=== PATIENT | female | born 1970 | race Caucasian/White ===

== ENCOUNTER → 2020-01-12 10:18 | Outpatient (BNVA) | payer OTHER, SELFPAY | PROVIDERS: PCP Internal Medicine; Referring Provider Internal Medicine; Visit Provider Advanced Practice Midwife | DX: N89.8 Other specified noninflammatory disorders of vagina (principal); N94.10 Unspecified dyspareunia; R23.2 Flushing | CPT/HCPCS: 99213 ==

== ENCOUNTER → 2020-04-21 11:35 | Outpatient (BNVA) | payer OTHER, SELFPAY | PROVIDERS: PCP Internal Medicine; Visit Provider Advanced Practice Midwife ==

== ENCOUNTER 2020-04-22 14:48 | Outpatient (REF) | payer OTHER, SELFPAY ==
--- NOTE | 2020-04-22 | MM_ITS ---
EXAMINATION: MM SCREENING DIGITAL BREAST TOMOSYNTHESIS, BILATERAL CLINICAL INFORMATION: Screening. Asymptomatic. The lifetime risk of breast cancer based on the Tyrer-Cuzick Model is 7%. COMPARISON: Outside mammography: 07/21/2015, 07/09/2011 ([place]) TECHNIQUE: Digital breast tomosynthesis is performed in both the craniocaudal and mediolateral oblique views along with computer-aided detection (CAD). Synthesized 2D images are generated from the tomosynthesis. FINDINGS: There are scattered areas of fibroglandular density (ACR BI-RADS breast composition Category b). There are no significant masses, abnormal calcifications, or other abnormalities. Parenchymal pattern is similar to prior outside development no significant changes. MM/MM tomosynthesis screening BI IMPRESSION: No mammographic evidence of malignancy. ASSESSMENT: BI-RADS 1: Negative RECOMMENDATION: Routine annual mammography screening. This patient's information was entered into a reminder system with a target due date for their next mammogram.
== END 2020-04-22 14:49 | disposition home or self-care (01) ==
LOC: HO.MAMMO 14:48
PROVIDERS: Visit Provider Advanced Practice Midwife
DX: Z12.31 Encounter for screening mammogram for malignant neoplasm of breast (principal)
CPT/HCPCS: 77063; 77067

== ENCOUNTER → 2020-06-14 12:24 | Outpatient (BNVA) | payer OTHER, SELFPAY | PROVIDERS: Visit Provider Advanced Practice Midwife ==

== ENCOUNTER 2020-10-12 08:14 | Outpatient (REF) | payer OTHER, SELFPAY ==
--- NOTE | ~2020-10-12 | US_ITS ---
EXAMINATION: US ABDOMEN COMPLETE CLINICAL INFORMATION: Right upper quadrant pain. COMPARISON: None TECHNIQUE: Real-time imaging of the abdominal viscera. FINDINGS: PANCREAS: Normal. ABDOMINAL AORTA: The proximal, mid, and distal segments are normal in caliber. INFERIOR VENA CAVA: Visualized portions are normal. LIVER: Normal. The liver is normal in size. The liver contour is normal. Parenchymal echogenicity is normal. No focal hepatic lesion. There is no intrahepatic biliary duct dilatation seen. GALLBLADDER: The gallbladder wall is slightly irregular and mildly thickened with echogenic non shadowing areas along the inner gallbladder wall likely adenomyomatosis or cholesterolosis. The gallbladder is physiologically distended without evidence of stones, sludge, polyps, wall thickening or pericholecystic fluid. COMMON BILE DUCT: Normal in caliber measuring 0.4 cm in diameter. RIGHT KIDNEY: Normal. No hydronephrosis. No renal calculi or focal parenchymal lesions. The kidney measures 11.6 cm in maximum dimension. LEFT KIDNEY: Normal. No hydronephrosis. No renal calculi or focal parenchymal lesions. The kidney measures 10.3 cm in maximum dimension. SPLEEN: Normal. The spleen measures 10.4 cm in maximum dimension. FREE FLUID: None. US/US abdomen complete IMPRESSION: Suspect gallbladder adenomyomatosis or cholesterolosis. No echogenic gallstones seen. Rest of the abdominal ultrasound is unremarkable.
== END 2020-10-12 08:15 | disposition home or self-care (01) ==
LOC: HO.US 08:14
PROVIDERS: Visit Provider Internal Medicine
DX: R10.11 Right upper quadrant pain (principal)
CPT/HCPCS: 76700

== ENCOUNTER 2021-05-27 07:43 | Outpatient (REF) | payer OTHER, SELFPAY ==
--- NOTE | ~2021-05-27 | MM_ITS ---
EXAMINATION: MM SCREENING DIGITAL BREAST TOMOSYNTHESIS, BILATERAL CLINICAL INFORMATION: Screening. Asymptomatic. The lifetime risk of breast cancer based on the Tyrer-Cuzick Model is 10%. COMPARISON: Mammography: 04/22/2020, outside exam 07/21/2015 ([place]). TECHNIQUE: Digital breast tomosynthesis is performed in both the craniocaudal and mediolateral oblique views along with computer-aided detection (CAD). Synthesized 2D images are generated from the tomosynthesis. FINDINGS: There are scattered areas of fibroglandular density (ACR BI-RADS breast composition Category b). There are no significant masses, abnormal calcifications, or other abnormalities. Parenchymal pattern is similar to prior studies. There is no developing density or architectural abnormality. The axilla and skin contours are unremarkable. No significant changes. MM/MM tomosynthesis screening BI IMPRESSION: No mammographic evidence of malignancy. ASSESSMENT: BI-RADS 1: Negative RECOMMENDATION: Routine annual mammography screening. This patient's information was entered into a reminder system with a target due date for their next mammogram.
== END 2021-05-27 07:44 | disposition home or self-care (01) ==
LOC: HO.MAMMO 07:43
PROVIDERS: PCP Internal Medicine; Visit Provider Internal Medicine
DX: Z12.31 Encounter for screening mammogram for malignant neoplasm of breast (principal)
CPT/HCPCS: 77063; 77067

== ENCOUNTER → 2021-07-18 08:45 | Outpatient (BNVA) | payer OTHER, SELFPAY | PROVIDERS: PCP Internal Medicine; Visit Provider Advanced Practice Midwife | DX: Z13.89 Encounter for screening for other disorder (principal) ==

== ENCOUNTER 2022-07-21 08:00 | Outpatient (REF) | payer OTHER, SELFPAY ==
--- NOTE | ~2022-07-21 | MM_ITS ---
EXAMINATION: MM SCREENING DIGITAL BREAST TOMOSYNTHESIS, BILATERAL CLINICAL INFORMATION: Screening. Asymptomatic. The lifetime risk of breast cancer based on the Tyrer-Cuzick Model is 8%. COMPARISON: Mammography: 05/27/2021, 04/22/2020; outside mammography 07/21/2015 ([place]). TECHNIQUE: Digital breast tomosynthesis is performed in both the craniocaudal and mediolateral oblique views along with computer-aided detection (CAD). Synthesized 2D images are generated from the tomosynthesis. FINDINGS: There are scattered areas of fibroglandular density (ACR BI-RADS breast composition Category b). There are no significant masses, abnormal calcifications, or other abnormalities. No architectural abnormality or developing density or significant change from prior studies. The axilla are unremarkable. The skin contours are smooth. MM/MM tomosynthesis screening BI IMPRESSION: No mammographic evidence of malignancy. ASSESSMENT: BI-RADS 1: Negative RECOMMENDATION: Routine annual mammography screening. This patient's information was entered into a reminder system with a target due date for their next mammogram.
== END 2022-07-21 08:01 | disposition home or self-care (01) ==
LOC: HO.MAMMO 08:00
PROVIDERS: PCP Internal Medicine; Visit Provider Internal Medicine
DX: Z12.31 Encounter for screening mammogram for malignant neoplasm of breast (principal)
CPT/HCPCS: 77063; 77067

== ENCOUNTER 2022-10-26 14:10 | Outpatient (AMB) | payer OTHER, SELFPAY ==
--- NOTE | 2022-10-26 14:16 | MHC.OFFVIS ---
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 Scribed for CHRIS Waller by Areli Angela medical record administrator, on 10/26/2022 at 2:45 pm EST Cashier Clerk Required: No Information Interpreted: non-clinical & clinical Petrography Teacher: Petrography Teacher Present (Claire Shaw ARTHUR) Accompanied by: Self / Same As Patient Allergies No Known Allergies Allergy (Verified 10/26/22 14:21) Is last menstrual period known: No HPI HPI Comments History of Present Illness Details She is a postmenopausal woman presenting for annual exam. Hx of hysterectomy due to cervical cancer. 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 She attempts to eat a healthy diet including Calcium and Vitamin D. She stays active with exercise. Currently sexually active. Uses Estradiol 2x per week for vaginal dryness. Denies vaginal itching and irritation. STD screening offered; she accepts. Last pap smear 2019. Last mammogram 07/21/22. UTD on colonoscopy. 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 Sexual orientation: Straight/Heterosexual Gender identity: Female Female Reproductive History Menstrual Menopause type: surgical Total pregnancies: 2 Full term: 2 Number of Living Children: 2 Date of last pap smear: 12/30/19 Date of Mammogram: 07/21/22 Physical Exam Vital Signs: Last Vital Signs BP 122/76 10/26/22 14:19 BMI result Body Mass Index 25.6 Const General: cooperative, healthy appearing, no acute distress, well developed and alert Orientation/consciousness: patient oriented x3 HEENT Head: Yes normal to inspection Eyes General: appearance normal, both eyes and all related structures Neck Neck: Yes normal visual inspection Thyroid: Thyroid normal Chest Chest palpation & inspection: normal inspection of the chest Breast/axilla inspection: normal inspection of the breasts (symmetrical) and Other (no: puckering, dimpling, peau de orange, retraction, discharge or lesions) Resp Effort & Inspection: normal respiratory effort GI Inspection: Yes normal to inspection Palpation (GI): Soft to palpation Rectal Exam - Female: deferred General: Yes bladder normal to palpation External Female Exam: normal external appearance and normal appearance of the urethra Speculum Exam - Vagina: normal appearance of the vagina, normal palpation, normal vaginal discharge and vagina atrophic Speculum Exam - Cervix: Cervix absent (vag cuff noted, no lesions or nodules ) Bimanual exam- vagina & uterus: normal bimanual exam, normal palpation, bladder normal to palpation and uterus absent Bimanual Exam- Adnexa, other: normal adnexae and no masses Skin General skin exam: no rashes or lesions noted Neuro General: patient oriented x3 Cognition (Neuro): normal cognition Extrem General: Yes normal to inspection Psych Attitude: cooperative Thought process: Normal thought process present Assessment & Plan Assessment & Plan (1) Encounter for annual routine gynecological examination: Code(s): Z01.419 - Encounter for gynecological examination (general) (routine) without abnormal findings Plan: Discussed: Current recommendations for pap smears per ASCCP guidelines. Breast awareness and periodic self breast exams. Encouraged yearly mammograms. Maintaining a healthy lifestyle including a well balanced diet including Calcium and Vitamin D and routine exercise. All of her questions and concerns were addressed to the best of my ability. RTO in one year for AG. (2) Vaginal dryness, menopausal: Code(s): N95.1 - Menopausal and female climacteric states Plan: Continue Estradiol. Orders: Orders Pap Smear Today Z01.419 - Encounter for gynecological examination (general) (routine) without abnormal findings Medications: Refilled estradiol 0.01%(0.1mg/gram) (Estrace) use nightly for two weeks, then twice a week 1 g vaginal 2XW 42.5 grams 4RF Coding Level of Care Code Est Pt Prev Care 40-64y(48989) Diagnoses Encounter for annual routine gynecological examination Z01.419 Vaginal dryness, menopausal N95.1
[2022-10-26 14:19] VITALS: BP 122/76; BMI 25.6
== END 2022-10-26 15:00 | disposition home or self-care (01) ==
LOC: HO.HWS 14:10
PROVIDERS: PCP Internal Medicine; Visit Provider Advanced Practice Midwife
DX: Z01.419 Encounter for gynecological examination (general) (routine) without abnormal findings (principal); N95.1 Menopausal and female climacteric states
CPT/HCPCS: 99396

== ENCOUNTER 2022-10-26 14:10 | Outpatient (REF) | payer OTHER, SELFPAY ==
[2022-11-01 22:18] LABS: HPV mRNA E6/E7 rflx Not Detected (Not Detected)
== END 2022-10-26 14:11 | disposition home or self-care (01) ==
LOC: HO.LNP 14:10
PROVIDERS: PCP Internal Medicine; Visit Provider Advanced Practice Midwife
DX: Z01.419 Encounter for gynecological examination (general) (routine) without abnormal findings (principal); Z11.51 Encounter for screening for human papillomavirus (HPV); N95.1 Menopausal and female climacteric states
CPT/HCPCS: 87624; 88142

== ENCOUNTER 2023-01-25 08:55 | Day surgery (SDC) | payer OTHER, SELFPAY ==
[2023-01-22 14:46] VITALS: BMI 26.3
--- NOTE | 2023-01-23 13:34 | HO.ANESPROP2 ---
Documented by User: Anca Cota NP 01/23/23 13:34 HPI - Anesthesia Eval Consult details Narrative: 52yo F for Upper Endoscopy and Colonoscopy PMFSH Active Problems Active Problems: All Active Problems (Updated 01/22/23 @ 14:44 by Theresa Boykin RN) Encounter for screening mammogram for malignant neoplasm of breast (Acute) Encounter for annual routine gynecological examination (Acute) Vaginal dryness (Acute) Hot flashes (Acute) Encounter to discuss test results (Acute) Counseling for estrogen replacement therapy (Acute) Dyspareunia (Acute) Atrophic vaginitis (Acute) Past Medical History Medical History (Updated 01/22/23 @ 14:44 by Theresa Boykin RN) Hx of cervical cancer History of anxiety disorder Atrophic vaginitis Anxiety Family History Family History Mother History of colon cancer Hx of cancer of uterus Surgical History Surgical History (Updated 01/22/23 @ 14:43 by Theresa Boykin RN) History of esophagogastroduodenoscopy (EGD) Hx of colonoscopy Hx of hysterectomy Social History Social History Household Members: Spouse Housing: House Alcohol intake: never Patient Tobacco Use Status: Never used Tobacco Current occupational status: employed 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 Sexual orientation: Straight/Heterosexual Gender identity: Female Meds Allergies Allergy/AdvReac Type Severity Reaction Status Date / Time No Known Allergies Allergy Verified 10/26/22 14:21 Home Medications Medication Instructions Recorded Confirmed Last Taken Type trazodone 50 mg tablet 50 mg PO BEDTIME PRN Insomnia 04/21/20 01/22/23 Unknown History Vitamin D3 01/22/23 01/22/23 Unknown History cetirizine 10 mg tablet 10 mg PO DAILY 01/22/23 01/22/23 Unknown History fluticasone propionate 50 spray intranasal 01/22/23 Unknown History mcg/actuation nasal spray,suspension omeprazole 20 mg capsule,delayed 20 mg PO DAILY 01/22/23 01/22/23 Unknown History release Exam Exam Date and Time: January 23, 2023 1334 Height,Weight and Vital Signs: Height 5 ft 5 in Weight 71.668 kg Assessment and Plan Assessment Anesthesia Assessment: Chart Reviewed Documented by User: Jimmy Rothman MD 01/25/23 07:42 PMF Past Medical History Medical History (Updated 01/22/23 @ 14:44 by Theresa Boykin RN) Hx of cervical cancer History of anxiety disorder Atrophic vaginitis Anxiety Family History Family History Mother History of colon cancer Hx of cancer of uterus Family history of problems with anesthesia: No Surgical History Surgical History (Updated 01/22/23 @ 14:43 by Theresa Boykin RN) History of esophagogastroduodenoscopy (EGD) Hx of colonoscopy Hx of hysterectomy History of Problems with Anesthesia: No Social History Social History Household Members: Spouse Housing: House Alcohol intake: never Patient Tobacco Use Status: Never used Tobacco Current occupational status: employed 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 Sexual orientation: Straight/Heterosexual Gender identity: Female Meds Allergies Allergy/AdvReac Type Severity Reaction Status Date / Time No Known Allergies Allergy Verified 10/26/22 14:21 Home Medications Medication Instructions Recorded Confirmed Last Taken Type trazodone 50 mg tablet 50 mg PO BEDTIME PRN Insomnia 04/21/20 01/22/23 Unknown History Vitamin D3 01/22/23 01/22/23 Unknown History cetirizine 10 mg tablet 10 mg PO DAILY 01/22/23 01/22/23 Unknown History fluticasone propionate 50 spray intranasal 01/22/23 Unknown History mcg/actuation nasal spray,suspension omeprazole 20 mg capsule,delayed 20 mg PO DAILY 01/22/23 01/22/23 Unknown History release Exam Airway Mallampati Class: II TM Dist: >3cm Neck ROM: Full Heart: rrr Lungs: cta Assessment and Plan Final Anesthetic Review Family History of Problems with Anesthesia: No History of Problems with Anesthesia: No NPO: Yes ASA Class: II Patient Risk: Intermediate Procedure Risk: Low Anesthetic Plan Anesthetic Plan: MAC: and Agree w/ Assess. and Plan Disposition: Standard PACU
[2023-01-25 09:24] VITALS: BP 147/84; PULSE 70; RESP 20; TEMP 36.1; O2SAT 98
[2023-01-25] MEDS: Lactated Ringers 1,000 ML 100 ML IVCONT (09:28)
--- NOTE | 2023-01-25 09:35 | MHC.SHP ---
Pre-Procedural Eval Section A Date of Service: 01/25/23 Section B Chief Complaint: hx malignant neoplasm,screening Details of Present Illness: see H&P no changes Relevant Family History (Specify if Yes): No Relevant Social History: None Present Medications: see Short Stay Collaborative assessment Allergies: Allergies Allergy/AdvReac Type Severity Reaction Status Date / Time No Known Allergies Allergy Verified 10/26/22 14:21 Review of Systems Sugical H&P ROS: Negative: Constitution, Cardiovascular, Respiratory, Neurological, Psychiatric, Hem-Onc, Allergic/Immunologic, Gastrointestinal, Genitourinary, Musculoskeletal, Integumentary, Endocrine and Eyes/Ears/Nose/Throat Exam Surgical H&P Exam: Normal: HEENT, Normal: Heart, Normal: Lungs, Normal: Extremities, Normal: Abdomen, Normal: Skin and Normal: Neurological Plan Diagnosis/Plan: Unchanged I have reviewed the history and physical and performed a pertinent physical examination on my patient. No changes have occurred unless specified. Time Spent With Patient Time: Total time managing care of this patient today ____ minutes.
[2023-01-25 10:26] VITALS: BP 141/82; PULSE 66; RESP 18; TEMP 36.6; O2SAT 100
--- NOTE | 2023-01-25 10:33 | PM.OP ---
Brief Operative Note Date of Service: 01/25/23 Pre-op diagnosis: gerd epigastric pain screening Post-op diagnosis: same Procedure: egd colonosocpy Surgeon: Raymon Rosas MD Anesthesia: MAC Was an [employer] used for this Procedure?: No Estimated blood loss (mL): 2 Pathology: other Condition: stable Disposition: PACU
[2023-01-25 10:41] VITALS: BP 156/78; PULSE 64; RESP 18; TEMP 36.7; O2SAT 98
--- NOTE | 2023-01-25 11:59 | OP_ITS ---
DATE OF SERVICE: 01/25/2023 SURGEON: Raymon Rosas MD INDICATIONS: 1. Epigastric pain, gastroesophageal reflux disease. 2. Colon cancer screening. PREOPERATIVE DIAGNOSIS: POSTOPERATIVE DIAGNOSIS: PROCEDURE PERFORMED: Upper endoscopy with biopsy, colonoscopy to the terminal ileum with snare polypectomy and biopsy. ESTIMATED BLOOD LOSS: COMPLICATIONS: ANESTHESIA: Monitored anesthesia care. ASSISTANTS: SPECIMENS: DESCRIPTION OF PROCEDURE: A history and physical was performed. The risks and benefits of the procedure were explained to the patient. Informed consent was obtained. The patient was placed in the left lateral decubitus position. The Olympus video gastroscope was introduced into the esophagus, stomach, and duodenum. Examination was performed. The scope was removed. She was repositioned for colonoscopy. A digital rectal exam was performed and was found to be normal. The Olympus pediatric video colonoscope was introduced into the rectum and advanced to the cecum. The cecum was identified by transillumination, palpation, and identification of ileocecal valve. Examination was performed. The scope was removed. She tolerated the procedure well and was returned to the recovery area in stable condition. FINDINGS: Upper endoscopy: 1. Esophagus: The esophagus was normal. There was no esophagitis. Biopsies were obtained from the EG junction. 2. Stomach: The stomach showed linear streaks of erythema consistent with gastritis, mainly in the antrum. Biopsies were obtained from the antrum. 3. Duodenum: The bulb and 2nd portion were normal. Colonoscopy: The terminal ileum was examined and appeared normal. The visualized colonic mucosa was within normal limits without evidence of masses or ulcers. A single polyp at 20 cm measuring approximately 5 mm was removed with a cold snare and recovered with the biopsy forceps. Retroflexed examination was normal. The quality of the prep was good. IMPRESSION: 1. Gastritis. 2. Colon polyp. RECOMMENDATION: Follow up the biopsy results. MD ALVAREZ Molina/ESTEFANI / [id number]
== END 2023-01-25 10:55 | disposition home or self-care (01) ==
PROVIDERS: PCP Internal Medicine; Visit Provider Internal Medicine Gastroenterology
PROC: (CPT 45385; principal; 2023-01-25 07:30)
DX: Z12.11 Encounter for screening for malignant neoplasm of colon (principal); Z80.0 Family history of malignant neoplasm of digestive organs; K63.5 Polyp of colon; K21.9 Gastro-esophageal reflux disease without esophagitis; K29.50 Unspecified chronic gastritis without bleeding; Z85.41 Personal history of malignant neoplasm of cervix uteri; Z90.710 Acquired absence of both cervix and uterus; Z79.899 Other long term (current) drug therapy
CPT/HCPCS: 45385; 45380; 43239; 88305; 88342

== ENCOUNTER 2023-07-27 07:55 | Outpatient (REF) | payer OTHER, SELFPAY ==
--- NOTE | ~2023-07-27 | MM_ITS ---
EXAMINATION: MM SCREENING DIGITAL BREAST TOMOSYNTHESIS, BILATERAL CLINICAL INFORMATION: Screening. Asymptomatic. COMPARISON: Mammography: This study is compared with prior exams dating back to 2016. TECHNIQUE: Digital breast tomosynthesis is performed in both the craniocaudal and mediolateral oblique views along with computer-aided detection (CAD). Synthesized 2D images are generated from the tomosynthesis. FINDINGS: There are scattered areas of fibroglandular density (ACR BI-RADS breast composition Category b). There are no significant masses, abnormal calcifications, or other abnormalities. MM/MM tomosynthesis screening BI IMPRESSION: No mammographic evidence of malignancy. ASSESSMENT: BI-RADS BI-RADS 1 - Negative RECOMMENDATION: Routine annual mammography screening. 1 year F/U This examination should not preclude the clinical evaluation of a suspicious palpable abnormality. This patient's information was entered into a reminder system with a target due date for their next mammogram.
== END 2023-07-27 07:56 | disposition home or self-care (01) ==
LOC: HO.MAMMO 07:55
PROVIDERS: PCP Internal Medicine; Visit Provider Internal Medicine
DX: Z12.31 Encounter for screening mammogram for malignant neoplasm of breast (principal)
CPT/HCPCS: 77063; 77067

== ENCOUNTER → 2023-07-27 08:15 | Outpatient (BNV) | payer OTHER, SELFPAY | PROVIDERS: PCP Internal Medicine; Visit Provider Radiology Diagnostic Radiology | DX: Z12.31 Encounter for screening mammogram for malignant neoplasm of breast (principal) | CPT/HCPCS: 77063; 77067 ==

== ENCOUNTER 2024-02-06 15:05 | Outpatient (AMB) | payer OTHER, SELFPAY ==
--- NOTE | 2024-02-06 15:06 | A.OFFVIS_ITS ---
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 She is doing well with no concerns. History of anxiety and is very stressed due to today's exam knowing that it will be very painful. She admits to stop using estrogen due to the inconvenience of its use and will request possibly other alternatives including the vaginal tablet. Not sexually active in a long time. Tried Replens moisturizer in the past she felt it did not work at all. Attempting to eat a healthy diet with calcium and vitamin D and stays active with exercise. History of cervical cancer-hysterectomy. Last mammogram; 2023. Colonoscopy is UTD. Denies any family history of breast, ovarian cancer. Family history of colon cancer-mom [facility] Medical History (Updated 02/06/24 @ 15:18 by Chela Beltran CNM) History of anxiety disorder Atrophic vaginitis Anxiety Surgical History (Updated 01/22/23 @ 14:43 by Theresa Boykin RN) History of esophagogastroduodenoscopy (EGD) Hx of colonoscopy Hx of hysterectomy Family History (Updated 02/06/24 @ 15:17 by Jessica Barillas MA) Mother History of colon cancer Hx of cancer of uterus Hypertension Diabetes Social History Household Members: Spouse Housing: House Alcohol intake: never Patient Tobacco Use Status: Never used Tobacco Current occupational status: employed 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 Sexual orientation: Straight/Heterosexual Gender identity: Female Female Reproductive History Menstrual Total pregnancies: 2 Full term: 2 Date of last pap smear: 10/26/22 (negative pap smear, negative hpv) 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) Date of Mammogram: 07/27/23 Review of Systems Const All systems reviewed & are unremarkable except as noted in HPI and below Reports as per HPI Eyes Reports no additional complaints ENT Reports no additional complaints Card Reports no additional complaints Resp Reports no additional complaints GI Reports as per HPI and Reports no additional complaints Reports as per HPI Musc Reports no additional complaints Skin/Breast Reports as per HPI Neuro Reports no additional complaints Psych Reports no additional complaints Endo Reports no additional complaints Bandar/Lymph Reports no additional complaints Aller/Immun Reports no additional complaints Physical Exam Vital Signs: Last Vital Signs BP 112/72 02/06/24 15:15 BMI result Body Mass Index 25.0 Const Other: Weepy throughout visit, anxious General: cooperative, healthy appearing, no acute distress, well developed and alert Orientation/consciousness: patient oriented x3 HEENT Head: Yes normal to inspection Eyes General: appearance normal, both eyes and all related structures Neck Neck: Yes normal visual inspection Thyroid: Thyroid normal Chest Chest palpation & inspection: normal inspection of the chest and other (no puckering, dimpling, peau de orange, retraction, discharge, masses) Breast/axilla inspection: normal inspection of the breasts Breast/axilla palpation: normal palpation of the breasts Resp Effort & Inspection: normal respiratory effort GI Inspection: Yes normal to inspection Palpation (GI): Soft to palpation Rectal Exam - Female: deferred General: Yes bladder normal to palpation External Female Exam: normal external appearance and normal appearance of the urethra Speculum Exam - Vagina: normal appearance of the vagina, normal palpation, normal vaginal discharge, vagina atrophic (Severe,) and other ([place] vaginal length) Speculum Exam - Cervix: Cervix absent and Other cervical findings present (Vaginal cuff no lesions or nodules) Bimanual exam- vagina & uterus: normal bimanual exam, normal palpation, bladder normal to palpation and uterus absent Bimanual Exam- Adnexa, other: no masses Skin General skin exam: no rashes or lesions noted Rashes: no rashes Neuro General: patient oriented x3 Cognition (Neuro): normal cognition Extrem General: Yes normal to inspection Psych Attitude: cooperative Thought process: Normal thought process present Assessment & Plan Assessment & Plan (1) Encounter for well woman exam with routine gynecological exam: Code(s): Z01.419 - Encounter for gynecological examination (general) (routine) without abnormal findings Category: Medical (2) Hx of cervical cancer: Code(s): Z85.41 - Personal history of malignant neoplasm of cervix uteri Category: Medical (3) Dyspareunia: Category: Medical (4) Atrophic vaginitis: Code(s): N95.2 - Postmenopausal atrophic vaginitis Category: Medical Plan Discussed: Current recommendations for pap smears per ASCCP guidelines. Breast awareness, periodic self breast exams and yearly mammogram. Maintain a healthy lifestyle, well balanced diet including Calcium 1,200 mg and Vitamin D 600 IU daily, and routine exercise. Discussed plan of care with Dr. Kee regarding estrogen, he recommend against continued use and advised she see the Gyne oncologist at [facility] for evaluation. Patient verbalizes understanding and agrees to the plan of care. She was given opportunity to ask questions and all questions were answered to the best of my ability. RTO in 1 year for annual cutter head sharpener exam. This note is constructed using voice recognition software. While every effort has been made to ensure accuracy, electromechanical equipment tester errors may have been included. Orders: Orders Pap Smear Today Z01.419 - Encounter for gynecological examination (general) (routine) without abnormal findings HPV High risk Today Z01.419 - Encounter for gynecological examination (general) (routine) without abnormal findings Referrals Gynecologic Oncology Referral N95.2 - Postmenopausal atrophic vaginitis Coding Level of Care Code Est Pt Prev Care 40-64y(06363) Diagnoses Encounter for well woman exam with routine gynecological exam Z01.419 Hx of cervical cancer Z85.41 Dyspareunia Atrophic vaginitis N95.2
[2024-02-06 15:15] VITALS: BP 112/72; BMI 25.0
== END 2024-02-06 16:04 | disposition home or self-care (01) ==
LOC: HO.HWS 15:05
PROVIDERS: PCP Internal Medicine; Visit Provider Advanced Practice Midwife
DX: Z01.419 Encounter for gynecological examination (general) (routine) without abnormal findings (principal); Z85.41 Personal history of malignant neoplasm of cervix uteri; N95.2 Postmenopausal atrophic vaginitis
CPT/HCPCS: 99396

== ENCOUNTER 2024-02-06 15:05 | Outpatient (REF) | payer OTHER, SELFPAY ==
[2024-02-07 12:38] LABS: HPV 16,18/45 See PAP report
== END 2024-02-06 15:06 | disposition home or self-care (01) ==
LOC: HO.LNP 15:05
PROVIDERS: PCP Internal Medicine; Visit Provider Advanced Practice Midwife
DX: Z01.419 Encounter for gynecological examination (general) (routine) without abnormal findings (principal); Z87.410 Personal history of cervical dysplasia; Z87.42 Personal history of other diseases of the female genital tract
CPT/HCPCS: 87624; 88175

== ENCOUNTER 2024-09-05 07:34 | Outpatient (REF) | payer OTHER, SELFPAY | END 2024-09-05 07:35 | disposition home or self-care (01) | LOC: HO.MAMMO 07:34 | PROVIDERS: PCP Internal Medicine; Visit Provider Internal Medicine | DX: Z12.31 Encounter for screening mammogram for malignant neoplasm of breast (principal) | CPT/HCPCS: 77063; 77067 ==

== ENCOUNTER → 2024-09-05 07:45 | Outpatient (BNV) | payer OTHER, SELFPAY | PROVIDERS: PCP Internal Medicine; Visit Provider Internal Medicine | DX: Z12.31 Encounter for screening mammogram for malignant neoplasm of breast (principal) | CPT/HCPCS: 77063; 77067 ==

== ENCOUNTER 2024-11-11 13:24 | Outpatient (AMB) | payer OTHER, SELFPAY ==
--- NOTE | 2024-11-11 13:42 | MHC.OFFVIS ---
Intake Visit Reasons: vaginal concerns Intake Note: Per patient vaginal redness, irritation, occasional itching. No discharge, no odor. Stopped Estradiol cream x1 week ago and not sure if she's noticed a difference. Thinks this could of been a reaction to the cream. 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 She has no itching or irritation or discharge. Using a topical Estrace and was told it was most likely some of the products within the cream that was causing the erythema, and/or possibly due to her swimming pool water. Interested in using [facility] to have more natural Fillers. History of anxiety with pelvic exam is in extreme discomfort. History of vaginal vaginismus. 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 Psych Other: Tearful with the conversation. Appearance: well kempt Attitude: cooperative Thought process: Normal thought process present Assessment & Plan Assessment & Plan (1) Atrophic vaginitis: Code(s): N95.2 - Postmenopausal atrophic vaginitis Category: Medical (2) Dyspareunia: Category: Medical Plan: Continue pelvic floor physical therapy, use of Estrace, Rx to be sent to pharmacy for compounding. (3) Vaginal dryness: Code(s): N89.8 - Other specified noninflammatory disorders of vagina Category: Medical Plan: Additional lubrication as needed p.r.n.. (4) Counseling for estrogen replacement therapy: Code(s): Z71.89 - Other specified counseling Category: Medical Plan: Counseled regarding medication use if persistent erythema we will need to revisit topic. Keep annual exam in January for a follow up appointment and evaluation, call sooner if needed p.r.n. The patient expressed understanding and agreement with the plan of care. All of her questions and concerns were addressed to the best of my ability. (5) Erythema of vulva: Code(s): L53.9 - Erythematous condition, unspecified Plan Plans to discontinue swimming for a bit, we will consider using Medicine Momma balm. Reviewed skin care and hygiene practices. Medications: New estradiol 0.01%(0.1mg/gram) (Estrace) use nightly for two weeks, then twice a week 1 g vaginal 2XW 42.5 grams 2RF Coding Level of Care Code Est Pt Level 3 (27930) Diagnoses Atrophic vaginitis N95.2 Dyspareunia Vaginal dryness N89.8 Counseling for estrogen replacement therapy Z71.89 Erythema of vulva L53.9
--- OUTSIDE RECORDS SUMMARY | 2024-11-11 13:50 | XMS_ITS | Clinical Summary ---
Author Organization [facility] Address [address] [place] [address] Phone Care Team Providers Care Registration Rep Name Role Phone Christianne Duffy MD Primary Care Provider [phone] Allergies Active Allergy Reactions Criticality Noted Date Comments Capsaicin Rash 07/02/2007 Cream Medications estradioL (ESTRACE) 0.01 % (0.1 mg/gram) vaginal cream Insert 1 g into the vagina. 1 Active fluticasone propionate (FLONASE) 50 mcg/actuation nasal spray Administer 2 sprays into affected nostril(s). 4 Active cholecalciferol (VITAMIN D-3) 50 mcg (2,000 unit) tablet Take 1 tablet (2,000 Units total) by mouth 1 (one) time each day. Active mv-min/iron/folic /calcium/vitK (WOMEN'S MULTIVITAMIN ORAL) Take by mouth. With omega 3 Active polyvinyl alcohol-povidone, PF, (ARTIFICIAL TEARS) 1.4-0.6 % ophthalmic solution apply to the eye as needed. Active acetaminophen (TYLENOL) 500 mg tablet Take 2 Tablets by mouth every 8 hours. 1 Active Active Problems Problem Noted Date Diagnosed Date Abdominal bloating 03/12/2024 Passage of loose stools 03/12/2024 Gassiness 03/12/2024 Abnormal EKG 09/18/2023 Palpitations 09/18/2023 Overview (03/12/2024): Last Assessment & Plan: Patient with palpitations. Etiology unclear. They are PVCs they are symptomatic. Lab work is stable thyroid and potassium are normal. She is not anemic. I sent her for stress echo if there is no evidence for ischemia or cardiomyopathy or mitral valve prolapse then she will have the option of starting beta-charlie therapy if she wants to decrease the symptoms. Looking at the morphology of the PVCs this is right bundle branch and this may be LV outflow tract Allergic rhinitis 06/25/2023 Adjustment disorder with mixed anxiety and depre ssed mood 11/01/2016 Insomnia 07/25/2015 Acne 10/22/2005 Anxiety state 10/22/2005 Immunizations Name Administration Dates Next Due Influenza Quadravalent, MDCK , 0.5ml, preservative free (Flucelvax) 6mo and older 02/05/2022 Influenza Quadravalent, MDCK , 0.5ml, with preservative (Flucelvax) 6mo and older 12/06/2017,12/27/2016 Influenza trivalent, 0.5mL, preservative free (Fluarix; FluLaval; Fluzone) ages 6mo and older (Afluria) 3 years and older 01/09/2024,01/21/2020,01/02/2008 Moderna SARS-CoV-2 COVID-19, mRNA, LNP-S, preservative free 03/09/2021 PPD Test 10/26/2011 Td Tetanus diptheria (Tdvax) 7yo and older 05/19 Tdap Tetanus diptheria acell ular pertussis (Boostrix; Adacel) 7yo and older 05/18/2009 Surgical History Surgery Date Site/Laterality Comments OTHER SURGICAL HISTORY 08/27/08 PROCEDURE: MO CONIZATION CERVIX W/WO D&C RPR KNIFE/LASER; COMMENT: Adenocarcinoma in-situ OTHER SURGICAL HISTORY 11/24/2008 PROCEDURE: HISTORICAL TOTAL HYSTERECTOMY W/O BSO; COMMENT: no residual tumor, per pt she still has ovaries COLONOSCOPY PROCEDURE: HISTORICAL COLONOSCOPY; COMMENT: Performed at [facility] in 2017 for abdominal bloating and gassiness Medical History Medical History Date Comments Anxiety state, unspecified 10/22/2005 DX:An xiety state, unspecified Adenocarcinoma in situ DX:Adenoc arcinoma in situ; COMMENT: found on Pap 06/07 - PHYLLIS 11/07, still has bilat ovaries Abdominal bloating DX:Abdominal bloating Gassiness DX:Gassiness Passage of loose stools DX:Passa ge of loose stools Anxiety DX:Anxiety History of cervical cancer 11/23/2020 DX:Hi story of cervical cancer Family History Medical History Relation Name Comments Colon polyps Brother 1 Melanoma Brother 1 Colon cancer Mother Other: bladder carcinoma Mother Uterine cancer Mother Breast cancer Neg Hx Relation Name Status Comments Brother 1 Alive x3; A&W Brother 2 Alive Brother 3 Alive Daughter Alive (12) A&W Father Alive DMII Maternal Grandfather (Age late 7 0s) smoker/alcohol; CVA Maternal Grandmother (Age late 5 0s) DMII Mother Alive DMII, HTN; [place] n Ca (dx'd 40s), uterine Ca (dx'd 60s) Paternal Grandfather (Age 80s) S hingles Paternal Grandmother (Age 80s) D MII; broken heart Son Alive (9yo) A&W Social History Tobacco Use Types Packs/Day Years Used Date Smoking Tobacco: Never Passive Smoke Exposure: Never Smokeless Tobacco: Never Tobacco Cessation:Counseling Given: Not Answered Alcohol Use Standard Drinks/Week Comments No 0 (1 standard drink = 0.6 oz pur e alcohol) Comments No Sex and Gender Information Value Date Recorded Sex Assigned at Not on file Legal Sex Female 11:49 PM EST Gender Identity Not on file Sexual Orientation Not on file Obstetrics History Last Filed Vital Signs Vital Sign Reading Time Taken Comments Blood Pressure 118/74 07/09/2024 3:36 PM EDT Pulse 68 07/09/2024 3:36 PM EDT Temperature 36.2 C (97.2 F) 07/09/2024 3:36 PM EDT Respiratory Rate 14 07/09/2024 3:36 PM EDT Oxygen Saturation 99% 06/26/2024 4:47 PM EDT Inhaled Oxygen Concentration - - Weight 70.8 kg (156 lb) 07/09/2024 3:36 PM EDT Height 165.1 cm (5' 5 ) 07/09/2024 3:36 PM EDT Body Mass Index 25.96 07/09/2024 3:36 PM EDT Plan of Treatment Upcoming Encounters Date Type Department Care Team (Late st Contact Info) Description 01/05/2025 4:30 PM EDT Office Visit Adult Medicine [facility] [address] [place] [address] [phone] Christianne Duffy MD [address] [place] [address] Health Maintenance Due Date Last Done Comments Hepatitis B Vaccines (1 of 3 - 19+ 3-dose series) 1989 Pneumococcal Vaccine: 50+ Years (1 of 1 - PCV) 2020 Zoster Vaccines (1 of 2) 2020 HIV Screening 03/10/2022 Hepatitis C Screening 03/10/2022 Social Influencers of Health Screening 03/10/2022 COVID-19 Vaccine ( season) 2023 03/09/2021, 06/12/2020, 05/15/2020 Depression Screening 04/01/2024 Influenza Vaccine (#1) 2024 , 02/05/2022, 01/21/2020, Additional history exists Breast Cancer Screening 09/05/2025 09/05/2024 Colorectal Cancer Screening: Colonoscopy 01/26/2028 01/25/2023 Cholesterol Screening (Lipid Panel) 01/08/2029 01/09/2024, 01/09/2024 DTaP,Tdap,and Td Vaccines (3 - Td or Tdap) 05/19/2031 05/19/2021, 05/18/2009 HIB Vaccines Aged Out No longer eligi ble based on patient's age to complete this topic HPV Vaccines Aged Out No longer eligi ble based on patient's age to complete this topic Hepatitis A Vaccines Aged Out No long er eligible based on patient's age to complete this topic IPV Vaccines Aged Out No longer eligi ble based on patient's age to complete this topic MMR Vaccines Aged Out No longer eligi ble based on patient's age to complete this topic Meningococcal ACWY Vaccine Aged Out N o longer eligible based on patient's age to complete this topic Meningococcal B Vaccine Aged Out No l onger eligible based on patient's age to complete this topic RSV Immunization Patients Under 20 months Aged Out No longer eligible based on patient's age to complete this topic Varicella Vaccines Aged Out No longer eligible based on patient's age to complete this topic Procedures Procedure Name Priority Date/Time Associated Diagnosis Comments EXTERNAL MAMMOGRAM REPORT 09/05/2024 LIPID PANEL Routine 01/09/2024 HM COLONOSCOPY Routine 01/25/2023 from Last 3 Months or Most Recently Relevant to Health Maintenance Results * External Mammogram Report (09/05/2024) Anatomical Region Laterality Modality Mammography us Provider [facility] BI PROCEDURES Final Result * (ABNORMAL) Lipid panel (01/09/2024) LDL/HDL Ratio 3 0 - 4 Triglycerides 58 0 - 150 mg/dL Cholesterol 231(A) 0 - 200 mg/dL HDL 80 >=40 mg/dL LDL Cholesterol 140(A) 0 - 100 mg/dL Blood Venous blood specimen / Unknown Historical Provider LAB BLOOD ORDERABLES Marylin l Result * Colonoscopy (01/25/2023) Colonoscopy no interpretation , abstracted Anatomical Region Laterality Modality Other Historical Provider HEALTH MAINTENANCE Final Result from Last 3 Months or Most Recently Relevant to Health [place] [id number] [place] [employer] Advance Directives Documents on File Type Date Recorded 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
--- OUTSIDE RECORDS SUMMARY | 2024-11-11 13:50 | XMS_ITS | Patient Health Record ---
Author Organization [facility] Address [address] [facility] [address] [place] [address] Care Team Providers Care Combined Rail Operator Name Role Phone Ana Sorenson Primary Care Provider Unavailab le Allergies Allergen (clinical drug ingredient) Drug/Non Drug Allergy documented on EMR Reaction Allergy Type Onset Date Status capsaicin Capzasin-P Unknown Drug Allergy Active Reason For Referral No Information Medications Medication SIG (Take, Route, Frequency, Duration) Notes Start Date End Date Status Cholecalciferol 50 MCG (1999) 1 tablet Orally Once a day Active traZODone HCl 50 MG 1 tablet at bedtime as needed Orally Once a day Active Estrace 0.1 MG/GM as directed Vaginal Active Cyclobenzaprine HCl 10 MG 1 tablet at be dtime as needed Orally Once a day Active Acetaminophen 500 MG 1 tablet as needed Orally every 6 hrs Active Cetirizine HCl 10 MG 1 tablet Orally Onc e a day Active Fluticasone Furoate 50 MCG/ACT 1 puff Inhalation Once a day Active dexAMETHasone 0.1 % 1 drop into affected eye Ophthalmic Three times a day Active Problems Problem Type SNOMED Code ICD Code Onset Dates Problem Status W/U Status Risk Notes Problem Common peroneal nerve lesion (604402305) 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 Plan Of Treatment Pending Test Test Name Order Date X ray : Foot, right 3v 09/19/2021 Insurance Providers Payer Name Payer Address Payer Phone Subscriber Number Group Number Insured Name Patient Relationship to Insured Coverage Start Date Coverage End Date [facility] [address] [place] [phone] [id number] Radha Salmeron Self - patient is the insured Medical (General) History Medical History History ICD Code History of Cervical Cancer Abdominal Bloating Gassiness Passage of loose stools Adjustment disorder with mixed anxiety a nd depressed mood Insomnia Severe Anxiety with THREAD SINGER exams Acne right sided lumbar spine pain Surgical History Surgery Date(Month/Year) Total Hysterectomy Hospitalization History Reason Date(Month/Year) Total Hysterectomy Surgery
--- OUTSIDE RECORDS SUMMARY | 2024-11-11 13:50 | XMS_ITS | Patient Health Record ---
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 Primary Care Provider Unavail able Raymon Rosas Jr Unavailable Allergies No Known Allergies Reason For Referral Referring Provider First Name Christianne Referring Provider Last Name Clive Referred Organization [facility] Referred Provider Raymon Rosas Jr Referred Address [address],[place], [place],[address], Referred Provider Specialty Gastroentero logy General Notes Elana Begum 024 10:04:30 AM EST > requested a [facility] health plan referral for visit with Dr. Rosas on [phone], Elana Begum 03/17/2024 11:17:44 AM EST > requested referrerral again (said pt's appt was 04-22-2024) Referral Priority Routine Medications Medication SIG (Take, Route, Frequency, Duration) Notes Start Date End Date Status Refresh Contacts Drops Active Yuvafem Active Triamcinolone & Emollient Active Systane Daytime/Nighttime Active Vitamin D3 Active Immunizations Vaccine Route Administration Date Status Comme nts Influenza Unknown 12/31/2019 Administered Influenza Unknown 12/18/2023 Administered Social History Tobacco Use: Social History Observation Description Date Details (start date - stop date) Never Smoker NA - NA Tobacco Use/Smoking Question Answer Notes Patient is a nonsmoker Alcohol Screen Question Answer Notes Did you have a drink containing alcohol in the p ast year? No Points 0 Interpretation Negative Problems Problem Type SNOMED Code ICD Code Onset Dates Problem Status W/U Status Risk Notes Problem 876550066 Colon cancer screening (Z12.11) Active confirmed Problem 84850605 Other constipati on (K59.09) Active confirmed Problem 383464917 Right upper quad rant pain (R10.11) Active confirmed Problem 81080068 Other dysphagia (R13.19) Active confirmed Problem 659329771 Gastroesophageal reflux disease without esophagitis (K21.9) Active confirmed Problem Gastritis (8416300) Gastritis (K29.70) Active confirmed Problem 034848630 FH: colon cancer (Z80.0) Active confirmed Vital Signs Temperature 98.4 degrees Fahrenheit 04/29/2024 Blood pressure diastolic 001 mm Hg 04/29/2024 Height 65 in 04/29/2024 Blood pressure systolic 001 mm Hg 04/29/2024 Weight 146.6 lbs 04/29/2024 BMI 24.39 kg/m2 04/29/2024 Encounters Encounter Location Date Provider Diagnosis [facility] [address] [place] [phone] 04/29/2024 Raymon Rosas Jr Other dysphagia R13.19 ; Gastroesophageal reflux disease without esophagitis K21.9 and Other constipation K59.09 [facility] [address] [place] [phone] 05/13/2024 Raymon Rosas Jr Assessments Encounter Date Diagnosis (ICD Code) Assessment Notes Treatment Notes Treatment Clinical Notes Section Notes 04/29/2024 Other dysphagia (ICD-10 - R13.19) We discussed h er symptoms today. We discussed irritable bowel syndrome with constipation predominance. We discussed gastroesophageal reflux disease today. We discussed dysphagia. We recommended further evaluation with upper GI series. For her constipation symptoms she can use Metamucil and MiraLax. Followup will be pending the results of her upper GI series. Today's visit was 30 minutes. 04/29/2024 Gastroesophageal reflux disease without esophagitis (ICD-10 - K21.9) Heartburn - what to ask your provider material was printed We discussed her symptoms today. We discussed irritable bowel syndrome with constipation predominance. We discussed gastroesophageal reflux disease today. We discussed dysphagia. We recommended further evaluation with upper GI series. For her constipation symptoms she can use Metamucil and MiraLax. Followup will be pending the results of her upper GI series. Today's visit was 30 minutes. 04/29/2024 Other constipation (ICD-10 - K59.09) We discussed h er symptoms today. We discussed irritable bowel syndrome with constipation predominance. We discussed gastroesophageal reflux disease today. We discussed dysphagia. We recommended further evaluation with upper GI series. For her constipation symptoms she can use Metamucil and MiraLax. Followup will be pending the results of her upper GI series. Today's visit was 30 minutes. Plan Of Treatment Pending Test Test Name Order Date XR GI SERIES 04/29/2024 Future Test Test Name Order Date COLONOSCOPY 08/09/2022 Next Appt Details Provider Name:Raymon wan Jr, 05/20/2025 03:55:00 PM, [address] [place] [address], [address], [place], [address], Insurance Providers Payer Name Payer Address Payer Phone Subscriber Number Group Number Insured Name Patient Relationship to Insured Coverage Start Date Coverage End Date [facility] (REFERRA L NEEDED) [address] [place] [address] [id number] ANTONIO YU Self - patient is the insured Medical (General) History Medical History History ICD Code Cervical cancer Colonoscopy 01/21, hyperplastic polyp, t en-year followup EGD 01/21, gastritis, no H. pylori or Ba rrett's esophagus. Surgical History Surgery Date(Month/Year) hysterectomy 11/24/2008
--- OUTSIDE RECORDS SUMMARY | 2024-11-11 13:50 | XMS_ITS | Clinical Summary ---
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 Phone Unavailable Primary Care Provider Unavailabl e Social History Tobacco Use Types Packs/Day Years Used Date Smoking Tobacco: Never Assessed Comments Unknown Sex and Gender Information Value Date Recorded Sex Assigned at Not on file Legal Sex Female 8:12 AM EDT Gender Identity Not on file Sexual Orientation Not on file Plan of Treatment Health Maintenance Due Date Last Done Comments Colorectal Cancer: COLONOSCO PY Screening every 10 yrs (or Modifier) 1970 Depression: Screening Annual ly using PHQ-2/9 in Adults 18 yrs or above (or HM Modifier)([facility]) 1988 Hepatitis C Virus Infection in Adolescents and Adults: Screening (or Modifier) ([facility]) 1988 SDVT Screening Reminder: Tricia brumfield for all adults ([facility]) 1988 Tobacco Smoking Cessation: i n Adults excluding Women: Behavioral and Pharmacotherapy Interventions ([facility]) 1988 DTaP/Tdap/Td Vaccines ([facility]) (1 - Tdap) 1989 Cervical Cancer Screenin 1-65 yrs of age (or Modifier) 07/15/1991 Cervical Cancer Screening: P ap every 3 yrs pts age 21-65 07/15/1991 Cervical Cancer: Pap Screeni ng with Modifier timing ([facility]) 07/15/1991 Cervical Cancer: hrHPV alone or with cotesting Pap for Pts 30-65yrs screening every 5yrs ([facility]) 07/15/1991 Colorectal Cancer Screening 45 -75 Yrs (or HM Modifier ) 07/15/2015 Colorectal Cancer: FLEXIBLE SIGMOIDOSCOPY Screening every 5 yrs 07/15/2015 Colorectal Cancer: Fecal Imm unochemical Test (FIT) Annually [facility] 07/15/2015 Colorectal Cancer: High-sens itivity gFOBT Screening Annually [facility] 07/15/2015 Colorectal Cancer: Stool Col oguard Screening every 3 yrs 07/15/2015 Colorectal Cancer:CT Colonography Screening every 5 yr s 07/15/2015 Breast Cancer: Screening Tricia octaviano age 50-74 yrs (or HM Modifier)([facility]) 2020 Pneumococcal Vaccination Scr eening: Patients 50+ yrs of age ([facility]) (1 of 1 - PCV) 2020 Zoster/Shingles Vaccine Seri es Screening: Adults aged 18+ yrs (or HM Modifiers)([facility]) (1 of 2) 2020 COVID-19 Vaccine Screening: Initial Series and Booster Status ([facility]) (2023- season) 2023 Flu Vaccination: Yearly for ages 18mos through 64 years (or Modifier)([facility]) 10/30/2024 Medical Devices Not on file Insurance [facility]
== END 2024-11-11 14:52 | disposition home or self-care (01) ==
LOC: HO.HWS 13:24
PROVIDERS: PCP Internal Medicine; Visit Provider Advanced Practice Midwife
DX: N95.2 Postmenopausal atrophic vaginitis (principal); Z71.89 Other specified counseling; L53.9 Erythematous condition, unspecified
CPT/HCPCS: 99213

== ENCOUNTER → 2024-11-11 13:24 | Outpatient (BNVA) | payer OTHER, SELFPAY | PROVIDERS: PCP Internal Medicine; Visit Provider Advanced Practice Midwife | DX: N95.2 Postmenopausal atrophic vaginitis (principal); Z71.89 Other specified counseling; L53.9 Erythematous condition, unspecified | CPT/HCPCS: 99212 ==